=== PATIENT | male | born 1965 | race African-American/Black ===

== ENCOUNTER 2022-08-16 21:41 | Emergency (ER) | payer MEDICAID ==
[~2022-08-16] VITALS: Ht 185.4 cm; Wt 72.7 kg
[2022-08-16 23:01] LABS: GLUCOMETER DEV NAME(LOC) ERT.5; GLUCOSE,POINT OF CARE 92 MG/DL (70-110)
[2022-08-16] MEDS ORDERED: LIDOCAINE 1% 10 ML VIAL SQ ONE (23:45)
[2022-08-17 00:55] VITALS: BP 139/82
== END 2022-08-17 01:01 | disposition home or self-care (01) ==
LOC: EMS 21:54
DX: S92.911A Unspecified fracture of right toe(s), initial encounter for closed fracture (principal); M79.674 Pain in right toe(s); W22.8XXA Striking against or struck by other objects, initial encounter; Y93.89 Activity, other specified; Y92.89 Other specified places as the place of occurrence of the external cause; Y99.8 Other external cause status
CPT/HCPCS: 64450; 99284; 82962; 73630; J3490

== ENCOUNTER 2024-09-18 08:13 | Emergency (ER) | payer MEDICAID ==
[~2024-09-18] VITALS: Ht 182.9 cm; Wt 72.7 kg
[2024-09-18 08:16] VITALS: TEMP 97.8
[2024-09-18] MEDS: AmLODIPine BESYLATE 5 MG TABLET PO ONE (08:54)
[2024-09-18] MEDS: CloNIDine HCL 0.1 MG TABLET PO ONE ×2 (08:54→11:29)
[2024-09-18 12:01] VITALS: BP 167/108; PULSE 62; RESP 18; O2SAT 99
[2024-09-18] MEDS ORDERED: AMLO-257 PO (12:24)
== END 2024-09-18 12:41 | disposition home or self-care (01) ==
LOC: EMS 08:16
DX: L84 Corns and callosities (principal); I16.0 Hypertensive urgency; I10 Essential (primary) hypertension; Z72.89 Other problems related to lifestyle
CPT/HCPCS: 99285; Z7502; Z7610

== ENCOUNTER 2024-09-23 22:23 | Emergency (ER) | payer MEDICAID ==
[~2024-09-23 22:23] MED LIST: AMLO-257 PO
== END 2024-09-23 23:00 | disposition left against medical advice (07) ==
LOC: EMS 22:25
DX: Z53.21 Procedure and treatment not carried out due to patient leaving prior to being seen by health care provider (principal)